=== PATIENT | male | born 1980 | race Caucasian/White ===

== ENCOUNTER 2017-02-13 11:32 | Emergency (ER) | payer BC ==
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
== END 2017-02-13 12:51 | disposition disaster alternative care site (69) ==
LOC: GACC 11:32
PROC: 2W21X4Z Dressing of Face using Bandage (ICD-10-PCS; principal; 2017-02-13)
DX: T54.2X1A Toxic effect of corrosive acids and acid-like substances, accidental (unintentional), initial encounter (principal); T20.40XA Corrosion of unspecified degree of head, face, and neck, unspecified site, initial encounter; Z90.49 Acquired absence of other specified parts of digestive tract; Y93.H9 Activity, other involving exterior property and land maintenance, building and construction
CPT/HCPCS: J1170; J2405